=== PATIENT | male | born 1970 | race Caucasian/White ===

== ENCOUNTER → 2018-05-12 | Outpatient (CLI) | payer OTHER ==
[~2018-05-12] MED LIST: ATOR40TA PO; LOSA50 PO; MELO7.5 PO; METF500 PO
[2018-05-12 15:16] LABS: BASOPHILS ABSOLUTE AUTO 0.04 K/mm3 (0.00-0.23); BASOPHILS PERCENT AUTO 1 % (0-2); EOSINOPHILS ABSOLUTE AUTO 0.27 K/mm3 (0.00-0.68); EOSINOPHILS PERCENT AUTO 4 % (0-6); Hematocrit 46.5 % (37.0-53.0); Hemoglobin 15.4 g/dL (13.5-17.5); IMMATURE GRAN ABSOLUTE AUTO 0.03 K/mm3 (0.00-0.10); IMMATURE GRAN PERCENT AUTO 0 % (0-1); LYMPHOCYTES ABSOLUTE AUTO 1.87 K/mm3 (0.84-5.20); LYMPHOCYTES PERCENT AUTO 27 % (21-46); MONOCYTES ABSOLUTE AUTO 0.45 K/mm3 (0.16-1.47); MONOCYTES PERCENT AUTO 7 % (4-13); Mean Corpuscular HGB 27.6 pg (26.0-34.0); Mean Corpuscular HGB Conc 33.1 g/dL (31.5-36.5); Mean Corpuscular Volume 83 fL (80-100); NEUTROPHILS ABSOLUTE AUTO 4.24 K/mm3 (1.96-9.15); NEUTROPHILS PERCENT AUTO 62 % (41-73); Platelet Count 314 K/mm3 (150-400); RDW Coefficient Variation 12.7 % (11.7-14.2); RDW Standard Deviation 38.2 fL (35.1-46.3); Red Blood Cell Count 5.58 M/mm3 (4.30-5.90)
[2018-05-12 15:24] LABS: Alanine Aminotransfer (ALT/SGP 35 U/L (12-78); Albumin, Blood 3.7 g/dL (3.4-5.0); Alk Phos 93 U/L (50-136); Anion Gap 6 mmol/L (6-16); Aspartate Aminotrans (AST/SGOT 21 U/L (12-37); Bilirubin, Total 0.3 mg/dL (0.1-1.0); Blood Urea Nitrogen 28 mg/dL (8-24); Bun/Creatinine Ratio 27.7 (12.0-20.0); CHOL/HDL RATIO 5.7; CO2, Blood 29 mmol/L (21-32); Calcium, Blood 8.5 mg/dL (8.5-10.1); Chloride, Blood 106 mmol/L (98-108); Cholesterol 212 mg/dL (50-200); Creatinine, Blood 1.01 mg/dL (0.60-1.20); Globulin, Blood 3.6 g/dL (2.2-4.0); Glomerular Filtration Rate >60 (60-); Glucose, Blood 142 mg/dL (70-99); HDL Cholesterol 37 mg/dL (>39); LDL/HDL RATIO Unable to Calculate; Low Density Lipoprotein Chol Unable to Calculate mg/dL (0-110); Potassium, Blood 3.7 mmol/L (3.5-5.5); Sodium, Blood 141 mmol/L (136-145); Total Protein, Blood 7.3 g/dL (6.4-8.2); Triglycerides 492 mg/dL (30-160); Very Low Density Lipoprot Chol Unable to Calculate mg/dL (6-32)
== END | disposition home or self-care (01) ==
LOC: LAB 14:53 → LAB SHORT 14:53
DX: E78.5 Hyperlipidemia, unspecified (principal); I10 Essential (primary) hypertension; R73.09 Other abnormal glucose
CPT/HCPCS: 80053; 80061; 83036; 85025

== ENCOUNTER 2023-08-08 10:17 | Emergency (ER) | payer OTHER ==
[~2023-08-08] VITALS: Ht 188 cm; Wt 178.7 kg
[2023-08-08 11:14] LABS: BASOPHILS ABSOLUTE AUTO 0.05 K/mm3 (0.00-0.23); BASOPHILS PERCENT AUTO 1 % (0-2); EOSINOPHILS PERCENT AUTO 4 % (0-6); Hemoglobin 15.4 g/dL (13.5-17.5); IMMATURE GRAN ABSOLUTE AUTO 0.03 K/mm3 (0.00-0.10); IMMATURE GRAN PERCENT AUTO 0 % (0-1); LYMPHOCYTES PERCENT AUTO 27 % (21-46); MONOCYTES ABSOLUTE AUTO 0.54 K/mm3 (0.16-1.47); MONOCYTES PERCENT AUTO 7 % (4-13); Mean Corpuscular HGB 26.4 pg (26.0-34.0); Mean Corpuscular HGB Conc 32.1 g/dL (31.5-36.5); Mean Corpuscular Volume 82 fL (80-100); Mean Platelet Volume 10.5 fL (9.1-12.4); NEUTROPHILS ABSOLUTE AUTO 4.55 K/mm3 (1.96-9.15); NEUTROPHILS PERCENT AUTO 61 % (41-73); Platelet Count 296 K/mm3 (150-400); RDW Coefficient Variation 15.1 % (11.7-14.2); RDW Standard Deviation 45.3 fL (35.1-46.3); Red Blood Cell Count 5.83 M/mm3 (4.30-5.90); White Blood Cell Count 7.47 K/mm3 (4.00-11.30)
[2023-08-08 11:42] LABS: Albumin, Blood 3.1 g/dL (3.4-5.0); Albumin/Globulin Ratio 0.8 (0.8-1.8); Bilirubin, Total 1.6 mg/dL (0.1-1.0); Bun/Creatinine Ratio 23.1 (12.0-20.0); Calcium, Blood 8.9 mg/dL (8.5-10.1); Creatinine, Blood 0.95 mg/dL (0.60-1.20); Globulin, Blood 4.1 g/dL (2.2-4.0); Potassium, Blood 4.1 mmol/L (3.5-5.5); Total Protein, Blood 7.2 g/dL (6.4-8.2)
[2023-08-08 15:53] VITALS: BP 110/66
[2023-08-08] MEDS ORDERED: ALOGLIPTIN25 M7 PO (15:54)
[2023-08-08] MEDS ORDERED: METFORMIN HCL500 M3 PO (15:54)
[2023-08-08] MEDS ORDERED: PREGABALIN75 MG PO (15:54)
[2023-08-08] MEDS ORDERED: MELO7.5 PO (15:54)
[2023-08-08] MEDS ORDERED: TOPI50 (15:55)
[2023-08-08] MEDS ORDERED: ACTOS30 MG PO (15:55)
== END 2023-08-08 17:05 | disposition home or self-care (01) ==
LOC: ER 10:17
PROVIDERS: Physician Assistant
DX: K80.20 Calculus of gallbladder without cholecystitis without obstruction (principal); Z88.0 Allergy status to penicillin; Z79.899 Other long term (current) drug therapy; Z79.84 Long term (current) use of oral hypoglycemic drugs; E78.00 Pure hypercholesterolemia, unspecified; E11.9 Type 2 diabetes mellitus without complications
CPT/HCPCS: 80053; 83690; 85025; 99283; A9270

== ENCOUNTER 2023-08-12 19:06 | Observation (INO) | payer OTHER ==
[~2023-08-12] VITALS: Ht 188 cm; Wt 160.5 kg
[~2023-08-12 19:06] MED LIST changes: +ACTOS30 MG PO; +ALOGLIPTIN25 M7 PO; +METFORMIN HCL500 M3 PO; +PREGABALIN75 MG PO; +TOPI50
[2023-08-12 19:50] LABS: BASOPHILS ABSOLUTE AUTO 0.06 K/mm3 (0.00-0.23); BASOPHILS PERCENT AUTO 1 % (0-2); EOSINOPHILS ABSOLUTE AUTO 0.21 K/mm3 (0.00-0.68); EOSINOPHILS PERCENT AUTO 2 % (0-6); Hematocrit 49.3 % (37.0-53.0); Hemoglobin 15.6 g/dL (13.5-17.5); IMMATURE GRAN ABSOLUTE AUTO 0.03 K/mm3 (0.00-0.10); IMMATURE GRAN PERCENT AUTO 0 % (0-1); LYMPHOCYTES ABSOLUTE AUTO 2.15 K/mm3 (0.84-5.20); LYMPHOCYTES PERCENT AUTO 20 % (21-46); MONOCYTES ABSOLUTE AUTO 0.63 K/mm3 (0.16-1.47); MONOCYTES PERCENT AUTO 6 % (4-13); Mean Corpuscular HGB 26.2 pg (26.0-34.0); Mean Corpuscular HGB Conc 31.6 g/dL (31.5-36.5); Mean Corpuscular Volume 83 fL (80-100); Mean Platelet Volume 10.5 fL (9.1-12.4); NEUTROPHILS ABSOLUTE AUTO 7.54 K/mm3 (1.96-9.15); NEUTROPHILS PERCENT AUTO 71 % (41-73); Platelet Count 318 K/mm3 (150-400); RDW Coefficient Variation 14.1 % (11.7-14.2); RDW Standard Deviation 42.5 fL (35.1-46.3); Red Blood Cell Count 5.95 M/mm3 (4.30-5.90); White Blood Cell Count 10.62 K/mm3 (4.00-11.30)
[2023-08-12 20:12] LABS: Albumin, Blood 3.3 g/dL (3.4-5.0); Albumin/Globulin Ratio 0.8 (0.8-1.8); Bilirubin, Total 1.2 mg/dL (0.1-1.0); Calcium, Blood 8.9 mg/dL (8.5-10.1); Creatinine, Blood 1.25 mg/dL (0.60-1.20); Globulin, Blood 4.1 g/dL (2.2-4.0); Potassium, Blood 4.2 mmol/L (3.5-5.5); Total Protein, Blood 7.4 g/dL (6.4-8.2)
[2023-08-12 23:18] LABS: International Normalized Ratio 0.96; Prothrombin Time Results 10.1 Sec (9.7-11.5)
[2023-08-12 23:47] VITALS: BP 131/70
[2023-08-12] MEDS ORDERED: MELOXICAM5 MG PO (23:55)
[2023-08-12] MEDS ORDERED: TOPI25 PO (23:57)
[2023-08-12] MEDS ORDERED: PREG75 PO (23:57)
[2023-08-12] MEDS ORDERED: ALOGLIPTIN25 M7 PO (23:58)
[2023-08-12] MEDS ORDERED: PIOG30 PO (23:58)
[2023-08-13] VITALS (21 sets, daily range): BP systolic 100–135; BP diastolic 59–99
--- NOTE | 2023-08-13 | NUR ---
PT NEW ADMIT FROM ER. PT A/O, TX SELF TO BED. ABD SOFT, PT REP MILD TENDERNES IN RUQ, DENIES N/V AT THIS TIME. PT ORIENTED TO ROOM, CALL LIGHT AND NPO STATUS.
[2023-08-13 04:22] LABS: BASOPHILS ABSOLUTE AUTO 0.05 K/mm3 (0.00-0.23); BASOPHILS PERCENT AUTO 1 % (0-2); EOSINOPHILS ABSOLUTE AUTO 0.21 K/mm3 (0.00-0.68); EOSINOPHILS PERCENT AUTO 3 % (0-6); Hematocrit 45.8 % (37.0-53.0); Hemoglobin 14.2 g/dL (13.5-17.5); IMMATURE GRAN ABSOLUTE AUTO 0.02 K/mm3 (0.00-0.10); IMMATURE GRAN PERCENT AUTO 0 % (0-1); LYMPHOCYTES ABSOLUTE AUTO 2.46 K/mm3 (0.84-5.20); LYMPHOCYTES PERCENT AUTO 33 % (21-46); MONOCYTES ABSOLUTE AUTO 0.52 K/mm3 (0.16-1.47); MONOCYTES PERCENT AUTO 7 % (4-13); Mean Corpuscular HGB 25.9 pg (26.0-34.0); Mean Corpuscular Volume 84 fL (80-100); Mean Platelet Volume 10.3 fL (9.1-12.4); NEUTROPHILS ABSOLUTE AUTO 4.19 K/mm3 (1.96-9.15); NEUTROPHILS PERCENT AUTO 56 % (41-73); Platelet Count 275 K/mm3 (150-400); RDW Coefficient Variation 14.2 % (11.7-14.2); RDW Standard Deviation 43.5 fL (35.1-46.3); Red Blood Cell Count 5.48 M/mm3 (4.30-5.90); White Blood Cell Count 7.45 K/mm3 (4.00-11.30)
[2023-08-13 04:47] LABS: Albumin, Blood 3.1 g/dL (3.4-5.0); Albumin/Globulin Ratio 0.9 (0.8-1.8); Bun/Creatinine Ratio 16.5 (12.0-20.0); Calcium, Blood 8.5 mg/dL (8.5-10.1); Creatinine, Blood 1.15 mg/dL (0.60-1.20); Globulin, Blood 3.5 g/dL (2.2-4.0); Total Protein, Blood 6.6 g/dL (6.4-8.2)
--- NOTE | 2023-08-13 06:26 | NUR ---
PT VSS SINCE ARRIVING TO FLOOR; HR SINUS 70'S PER TELE MONITOR. PT REP MOLD ABD PAIN, DECLINED NEED FOR PAIN MEDS. PT MED FOR NAUSEA X1 W/REP RELIEF. PT NPO, IVF CONT PER ORDERS.
--- NOTE | 2023-08-13 14:13 | NUR ---
Pt. is awake in bed when he welcomes my visit. Pt. is pleasant. A life review was facilitated which included matters of ilana and beleif. Listen with empathy, interest and a calming presence. Rapport is established. Prayed with Pt. Pt. verbalized gratitude for the spitiual care visit and welcomed this network programmer to return.
--- NOTE | 2023-08-13 15:22 | NUR ---
PT BROUGHT TO [facility] PER JAZMIN BY SUN FRAIRE. Patient confirms NPO status and agrees with scheduled surgery. Pre-Op teaching done. Pt verbalizes understanding. History, Chart, Medications and Allergies reviewed before start of procedure.
--- NOTE | 2023-08-13 19:01 | NUR ---
PCU ARRIVAL / END OF SHIFT PT BROUGHT TO PCU-07 BY JAZMIN FROM OR @ 1830 FOR "PAIN MANAGEMENT" & CPAP PER OR NURSE. PT A&O X4. VSS. SPO2 > 92% ON CPAP W/ 4L BLEED IN. MONITOR SHOWING SR, HR 70s. LAPRASCOPIC INCISION SITES X4 W/ STERI STRIPS IN PLACE. PT REPORTING 4/10 ABD PAIN, STATING "IT'S NOT THAT BAD." PT REPORTING "THEY GAVE ME PAIN MEDS, SO I DON'T REALLY KNOW WHAT THE PAIN FEELS LIKE." PT W/ PENDING DISCHARGE HOME ORDER WHEN OKAY W/ GENERAL SURGERY.
--- NOTE | 2023-08-13 21:28 | NUR ---
ASSUMPTION OF CARE THIS RN ASSUMED CARE AT APPROX 1915. S/P LAP CHOLECTOMY, POST OP DAY 0. X4 LAP SITES W/ STERI STRIP DRESSING, C/D/I. WITH MINIMAL SEROSANGUINEOUS DRAINAGE. IS ALERT AND ORIENTED X4. COOPERATIVE WITH CARE AND RECEPTIVE TO EDUCATION, ASKS QUESTIONS NEEDED. IS A 1 PERSON, STAND BY ASSIST TO THE RESTROOM. ABLE TO VOID A SMALL AMOUNT. VSS. TELEMETRY SHOWING SINUS 70's. BP STABLE. DENIES CHEST PAIN OR PRESSURE. AT ASSUMPTION OF CARE, PATIENT ON CPAP WITH 4L BLEED IN, SATS >90%. WHILE AWAKE, PATIENT IS ON ROOM AIR, SATS >90%. USES CPAP WHILE SLEEPING AT BASELINE, IS CURRENTLY BACK ON CPAP TO REST. REPORTS 6/10 ABDOMINAL PAIN, MANAGING PER EMAR. CALL LIGHT IN REACH.
--- NOTE | 2023-08-13 22:35 | NUR ---
UPDATE THIS RN CONTACTED MD LESLIE REGARDING POSSIBLE STATUS CHANGE. VS REMAIN STABLE. PATIENT ON BASELINE ROOM AIR WHILE AWAKE AND CPAP USE WHILE SLEEPING. STATUS CHANGE TO SURGICAL. TELEMETRY REMOVED.
--- NOTE | 2023-08-13 23:10 | NUR ---
RECEIVED BED ON SURGICAL UNIT. REPORT GIVEN TO ACCEPTING RN. PATIENT TRANSFERRED VIA HOSPITAL BED AT APPROX 2305. PERSONAL BELONGINGS W/ PATIENT. CPAP TRANSFERRED WITH PATIENT.
--- NOTE | 2023-08-13 23:26 | NUR ---
PT TX FROM PCU 7. PT A/O, AMB W/SBA TX TO BED. VSS, LUNGS CLEAR/DIM. PT REP PAIN JUDI 11/30, DENIES N/V, REP JELLO. PT HAD 1 UNMEASURED VOID UPON ARRIVAL TO FLOOR. INCISIONS SMALL AMT W/DRIED SS DRNG ON STERI STRIPS. PT REORIENTED TO ROOM/CALL LIGHT.
[2023-08-14 04:01] VITALS: BP 103/59
[2023-08-14 05:32] LABS: BASOPHILS ABSOLUTE AUTO 0.04 K/mm3 (0.00-0.23); BASOPHILS PERCENT AUTO 0 % (0-2); EOSINOPHILS ABSOLUTE AUTO 0.11 K/mm3 (0.00-0.68); EOSINOPHILS PERCENT AUTO 1 % (0-6); Hematocrit 46.1 % (37.0-53.0); Hemoglobin 14.2 g/dL (13.5-17.5); IMMATURE GRAN ABSOLUTE AUTO 0.02 K/mm3 (0.00-0.10); IMMATURE GRAN PERCENT AUTO 0 % (0-1); LYMPHOCYTES ABSOLUTE AUTO 2.07 K/mm3 (0.84-5.20); LYMPHOCYTES PERCENT AUTO 22 % (21-46); MONOCYTES ABSOLUTE AUTO 0.73 K/mm3 (0.16-1.47); MONOCYTES PERCENT AUTO 8 % (4-13); Mean Corpuscular HGB 26.1 pg (26.0-34.0); Mean Corpuscular HGB Conc 30.8 g/dL (31.5-36.5); Mean Corpuscular Volume 85 fL (80-100); Mean Platelet Volume 10.5 fL (9.1-12.4); NEUTROPHILS ABSOLUTE AUTO 6.57 K/mm3 (1.96-9.15); NEUTROPHILS PERCENT AUTO 69 % (41-73); Platelet Count 301 K/mm3 (150-400); RDW Coefficient Variation 14.3 % (11.7-14.2); RDW Standard Deviation 43.9 fL (35.1-46.3); Red Blood Cell Count 5.44 M/mm3 (4.30-5.90); White Blood Cell Count 9.54 K/mm3 (4.00-11.30)
[2023-08-14 06:08] LABS: Albumin, Blood 3.1 g/dL (3.4-5.0); Albumin/Globulin Ratio 0.8 (0.8-1.8); Bilirubin, Total 1.6 mg/dL (0.1-1.0); Bun/Creatinine Ratio 18.2 (12.0-20.0); Calcium, Blood 8.7 mg/dL (8.5-10.1); Creatinine, Blood 1.1 mg/dL (0.60-1.20); Globulin, Blood 3.9 g/dL (2.2-4.0); Potassium, Blood 4.1 mmol/L (3.5-5.5)
[2023-08-14 07:27] VITALS: BP 113/65
--- NOTE | 2023-08-14 08:03 | NUR ---
POD 1 S/P LAP LIAT. PT T/O NIGHT. INCISIONS CDI. PAIN MGD W/1 NORCO W/REP RELIEF. CPAP ON WHILE SLEEPING, 2LO2 IN [place] THIS AM. PT USING I/S AT BEDSIDE. PT JUDI PO, DENIED N/V, REP +FLATUS. PT AMB INDEP IN ROOM, JUDI WELL.
[2023-08-14] MEDS ORDERED: Norco 5-325 Ta1 EACH PO (13:55)
== END 2023-08-14 15:01 | disposition home or self-care (01) ==
LOC: ER 19:06 → SURS 19:07 → PCU 08-13 18:28 → SURS 08-13 23:20
PROVIDERS: Physician Assistant; Surgery; ADMIT Internal Medicine
PROC: 0FT44ZZ Resection of Gallbladder, Percutaneous Endoscopic Approach (ICD-10-PCS; principal; 2023-08-13 12:00)
DX: K80.12 Calculus of gallbladder with acute and chronic cholecystitis without obstruction (principal); K80.50 Calculus of bile duct without cholangitis or cholecystitis without obstruction; J96.11 Chronic respiratory failure with hypoxia; E11.22 Type 2 diabetes mellitus with diabetic chronic kidney disease; I12.9 Hypertensive chronic kidney disease with stage 1 through stage 4 chronic kidney disease, or unspecified chronic kidney disease; N18.2 Chronic kidney disease, stage 2 (mild); E78.00 Pure hypercholesterolemia, unspecified; J44.9 Chronic obstructive pulmonary disease, unspecified; G47.33 Obstructive sleep apnea (adult) (pediatric); Z79.84 Long term (current) use of oral hypoglycemic drugs; Z79.899 Other long term (current) drug therapy; Z88.0 Allergy status to penicillin
CPT/HCPCS: 36415; 80053; 82947; 83690; 83880; 85025; 85610; 88304; 93005; 93010; 94660; 94761; 94762; 96375; 99285-25; A9270; G0378; J0690; J1100; J1885; J2250; J2405; J2704; J3010; J7030; J7120

== ENCOUNTER 2024-03-16 07:42 | Day surgery (SDC) | payer OTHER ==
[2024-03-16] VITALS (9 sets, daily range): BP systolic 111–140; BP diastolic 80–95
[~2024-03-16] VITALS: Ht 185.4 cm; Wt 194.4 kg
[~2024-03-16 07:42] MED LIST changes: +Aspir 8181 MG PO; +GABA400 PO; +Isosorbide Mono30 MG PO; +MELOXICAM5 MG PO; +NITR.4SL SL; +Norco 5-325 Ta1 EACH PO; +PIOG30 PO; +PREG75 PO; +SENN187 PO; +STEGLATRO15 MG PO; +TOPI25 PO
[2024-03-16] MEDS ORDERED: Verapamil HCL 2.5 MG/ML 2ML Injection ONE (08:54)
[2024-03-16] MEDS ORDERED: Heparin Sodium 1000 Units/ML 10ML MDV ONE (08:54)
[2024-03-16] MEDS ORDERED: NS 1,000 ML IV ONE ×2 (08:55→09:04)
[2024-03-16] MEDS ORDERED: Nitroglycerin 2 MG/20 ML BTL ONE (08:55)
[2024-03-16] MEDS ORDERED: NS 250 ML IV ONE (08:55)
[2024-03-16] MEDS ORDERED: Midazolam HCl 1MG / ML 2ML Vial ONE (09:04)
[2024-03-16] MEDS ORDERED: FentaNYL Citrate 50 MCG/ML 2 ML Injection ONE (09:04)
--- NOTE | 2024-03-16 09:52 | NUR ---
PATIENT ARRIVED TO RECOVERY ROOM SITTING UPRIGHT IN RECLINER. R RADIAL TR BAND FULLY INFALTED. SITE C/D/I SOFT/NONTENDER, NO EVIDENCE OF BLEEDING. VSS ON RA. PATIENT DENYING ANY PAIN. PATIENT TOLERATING PO INTAKE WELL.
--- NOTE | 2024-03-16 10:05 | NUR ---
ASSUMED CARE OF PT. PT AWAKE AND ORIENTED, CONVERSING APPROPRIATELY, DENIES CHEST PAIN POST PROCDURE. MONITOR SR 60'S, B/P 140/90, SPO2 97% RA, AFEBRILE. R RADIAL SITE NO SWELLING/HEMATOMA, TR BAND IN PLACE; RUE POSITIVE PLEUTH POST TR BAND PLACEMENT.
--- NOTE | 2024-03-16 10:25 | NUR ---
DR BARBA DISCUSSED RESULTS OF PROCEDURE [facility] PT.
--- NOTE | 2024-03-16 11:41 | NUR ---
TR BAND FULLY DEFLATED, NO SWELLING/HEMATOMA.
[2024-03-16] MEDS ORDERED: Meloxicam 7.5 MG Tab PO ONE (12:00)
[2024-03-16] MEDS ORDERED: Isosorbide Mononitrate 60 MG TABCR PO ONE (12:00)
--- NOTE | 2024-03-16 12:15 | NUR ---
R RADIAL SITE UNCHANGED AFTER TR BAND DELFATED, NO SWELLING/HEMATOMA.
--- NOTE | 2024-03-16 12:18 | NUR ---
R RADIAL SITE UNCHANGED AFTER TR BAND DEFLATION. PT RECEIVED MELOXICAM FOR GEN ARTHRITIC DISCOMFORT AND SCHEDULED IMDUR.
--- NOTE | 2024-03-16 12:35 | NUR ---
PT AMB TO BATHROOM, GAIT STEADY, SITE UNCHANGED. PT DRESSED SELF WITHOUT ISSUE; SITE UNCHANGED. TR BAND REMOVED, CLOTH DOT AND WRIST IMMOBILZER PLACED; IV REMOVED-CANNULA INTACT.
--- NOTE | 2024-03-16 12:45 | NUR ---
PT RECEIVED DISCHARGE INSTRUCTIONS, MED LIST AND AFTER CARE INSTRUCTIONS; VERBALIZED GOOD UNDERSTANDING. PT LEFT FACILITY VIA W/C, CONDITION STABLE.
== END 2024-03-16 12:45 | disposition home or self-care (01) ==
LOC: MHTC NI 07:42 → MHTC 07:42 → MHTC NI 12:45
DX: R94.39 Abnormal result of other cardiovascular function study (principal); R07.89 Other chest pain; R06.02 Shortness of breath; I10 Essential (primary) hypertension; E11.9 Type 2 diabetes mellitus without complications; G47.33 Obstructive sleep apnea (adult) (pediatric); Z88.0 Allergy status to penicillin; Z79.82 Long term (current) use of aspirin; Z79.899 Other long term (current) drug therapy
CPT/HCPCS: 76937; 93454; 99152; A9270; C1769; C1894; J1644; J2250; J3010; J7030; J7050; Q9967

== ENCOUNTER → 2024-09-22 | Outpatient (CLI) | payer OTHER ==
[2024-09-24 17:16] LABS: Microalb/Creat Ratio UR, Rand 10.328 mg/g (0.000-30.000); Microalbumin, Random Urine 12.6 mg/L (0.000-20.000)
== END ==
LOC: LAB SHORT 14:56 → LAB 14:56
PROVIDERS: Family Medicine
DX: E11.69 Type 2 diabetes mellitus with other specified complication (principal); E11.65 Type 2 diabetes mellitus with hyperglycemia; E11.21 Type 2 diabetes mellitus with diabetic nephropathy; E11.22 Type 2 diabetes mellitus with diabetic chronic kidney disease
CPT/HCPCS: 82043; 82570

== ENCOUNTER → 2025-02-04 | Outpatient (CLI) | payer OTHER | LOC: LAB SHORT 10:10 → LAB 10:10 | DX: T14.8XXA Other injury of unspecified body region, initial encounter (principal) | CPT/HCPCS: 87070; 87075; 87077; 87147; 87186; 87205 ==

== ENCOUNTER → 2025-04-16 | Outpatient (CLI) | payer OTHER ==
[2025-04-16 10:02] LABS: BASOPHILS ABSOLUTE AUTO 0.02 K/mm3 (0.00-0.23); BASOPHILS PERCENT AUTO 0 % (0-2); EOSINOPHILS ABSOLUTE AUTO 0.14 K/mm3 (0.00-0.68); EOSINOPHILS PERCENT AUTO 2 % (0-6); Hematocrit 50.4 % (37.0-53.0); Hemoglobin 16.3 g/dL (13.5-17.5); IMMATURE GRAN ABSOLUTE AUTO 0.01 K/mm3 (0.00-0.10); IMMATURE GRAN PERCENT AUTO 0 % (0-1); LYMPHOCYTES ABSOLUTE AUTO 1.80 K/mm3 (0.84-5.20); LYMPHOCYTES PERCENT AUTO 27 % (21-46); MONOCYTES ABSOLUTE AUTO 0.45 K/mm3 (0.16-1.47); MONOCYTES PERCENT AUTO 7 % (4-13); Mean Corpuscular HGB Conc 32.3 g/dL (31.5-36.5); Mean Corpuscular Volume 82 fL (80-100); NEUTROPHILS ABSOLUTE AUTO 4.16 K/mm3 (1.96-9.15); NEUTROPHILS PERCENT AUTO 63 % (41-73); NRBC ABSOLUTE 0.00 K/mm3 (0.00-0.02); NRBC Auto 0.0 /100 WBC (0.0-0.2); Platelet Count 235 K/mm3 (150-400); RDW Coefficient Variation 13.0 % (11.7-14.2); RDW Standard Deviation 38.5 fL (35.1-46.3)
[2025-04-16 10:14] LABS: Alanine Aminotransfer (ALT/SGP 35.0 U/L (12-78); Albumin, Blood 3.9 g/dL (3.4-5.0); Albumin/Globulin Ratio 1.1 (0.8-1.8); Anion Gap 11.0 mmol/L (6-16); Aspartate Aminotrans (AST/SGOT 22.0 U/L (12-37); Bilirubin, Total 0.9 mg/dL (0.1-1.0); Blood Urea Nitrogen 24.0 mg/dL (8-24); CO2, Blood 28.0 mmol/L (21-32); Calcium, Blood 9.0 mg/dL (8.5-10.1); Chloride, Blood 102.0 mmol/L (98-108); Creatinine, Blood 1.08 mg/dL (0.60-1.20); Globulin, Blood 3.5 g/dL (2.2-4.0); Glucose, Blood 105.0 mg/dL (70-99); Potassium, Blood 4.7 mmol/L (3.5-5.5); Sodium, Blood 136.0 mmol/L (136-145); Total Protein, Blood 7.4 g/dL (6.4-8.2)
== END ==
LOC: LAB SHORT 09:51 → LAB 09:51
PROVIDERS: Physician Assistant
DX: R10.9 Unspecified abdominal pain (principal)
CPT/HCPCS: 80053; 85025